=== PATIENT | female | born 1950 | race Caucasian/White ===

== ENCOUNTER 2017-02-26 10:05 | Day surgery (SDC) | payer OTHER ==
[~2017-02-26] VITALS: Ht 162.6 cm; Wt 59.0 kg
[~2017-02-26 10:05] MED LIST: Sodium Chloride LOK Flush 10 mL Syringe IV PRN; fentaNYL-PF 50 mCg/mL 2 mL Inj IVPUSH PRN
[2017-02-26 10:26] VITALS: BP 106/70; PULSE 57; RESP 16; O2SAT 98
[2017-02-26] MEDS: 0.9% Sodium Chloride 1,000 ML IV SCH ×2 (10:36→10:44)
[2017-02-26 11:12] VITALS: BP 92/59; PULSE 52; RESP 12; O2SAT 96
[2017-02-26 11:22] VITALS: BP 99/61; PULSE 49; RESP 14; O2SAT 98
[2017-02-26 11:32] VITALS: BP 102/65; PULSE 49; RESP 14; O2SAT 100
[2017-02-26 11:43] VITALS: BP 92/59; PULSE 54; RESP 14; O2SAT 99
--- NOTE | 2017-02-26 20:33 | ENDO ---
[address] [address] ENDOSCOPY PROCEDURE PATIENT: ELHAM LEIVA : 1950 MR#: [id number] ADMIT: 02/26/2017 JOB ID: [id number] DATE: 02/26/2017 PROCEDURE: Colonoscopy. PREOPERATIVE DIAGNOSIS(ES): History of diverticulosis. POSTOPERATIVE DIAGNOSIS(ES): 1. Mild diverticulosis seen in the sigmoid and proximal transverse colon. 2. Very tortuous colon. 3. Small internal hemorrhoids. ANESTHESIA: 1. Fentanyl 100 mcg. 2. Versed 5 mg IV administered. COMPLICATIONS: None. BLOOD LOSS: Minimal. DESCRIPTION OF PROCEDURE: After risks and benefits were explained to the patient, informed consent was obtained. After anesthesia administered, colonoscope was inserted from rectum to cecum. Mucosa carefully examined. Prep of the patient was excellent. After the procedure was done, the scope was withdrawn and procedure terminated. FINDINGS: Upon inspection of the anus, no masses, hemorrhoids, ulcers, fissures that were seen. Throughout the entire examination, there was mild sigmoid and proximal transverse colon diverticulosis. The colon was very tortuous. No polyps or masses were seen. Retroflexion showed small internal hemorrhoids. IMPRESSIONS: 1. Very tortuous colon. 2. Small internal hemorrhoids. 3. Mild diverticulosis seen in the sigmoid and proximal transverse colon. RECOMMENDATIONS: High-fiber diet, repeat colonoscopy in five years given history of colon polyps.
== END 2017-02-26 23:59 | disposition home or self-care (01) ==
LOC: END 10:05
PROVIDERS: ATTEND Internal Medicine Gastroenterology
DX: K57.30 Diverticulosis of large intestine without perforation or abscess without bleeding (principal); K64.8 Other hemorrhoids; Q43.9 Congenital malformation of intestine, unspecified